=== PATIENT | male | born 1970 | race Caucasian/White ===

== ENCOUNTER 2025-01-08 21:31 | Emergency (ER) | payer BC, SELFPAY ==
--- OUTSIDE RECORDS SUMMARY | 2019-08-17 06:32 | XMS_ITS | Continuity of Care Document ---
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 Role Phone Liban Anderson MD Unavailable Unavailable Medications Medication Instructions Dosage Effective Dates (start - stop) Status Comments prednisone 20 mg tablet 3 PO for 2 days, then 2 PO for 2 days, then 1 PO for 2 days - Active Take Prednisone 20mg week one, then take medrol humphrey 4mg week 2 Medrol (Humphrey) 4 mg tablets in a dose pack take by Oral route Not Available - Active Take Prednisone 20mg week one, then take medrol humphrey 4mg week 2 cyclobenzaprine 10 mg tablet take 1 tablet by oral route every 8 hours - Active Procedures Procedure Date Office/outpatient visit,[facility] 2019 X-ray exam lower spine 2-3 views 2019 Advance Directives Directive Yes / No Effective Date File Name No Information Encounters Encounter Description Practice Location Reason(s) For Visit Diagnoses Date Provider Providers Copied on Encounter [facility], [facility] [place], [address], tel:[phone] No Information 0 Justin Louie. [address] [facility], [facility] [address], [place], [id number] , [place]. tel:[phone] Office/outpat ient visit,[facility], [address] [place], [address], [place] tel:[phone] [facility] [place] Radiculopathy , lumbar regionStrain of muscle, fascia and tendon of lower back, init 0 Justin Chavez [address] [facility], [address], [place], [place], [id number] , [place]. tel:[phone] Family History Family Member Type Diagnosis Age At Onset No Information Payers Payer name Insurance type Covered alliance party ID Authoriza tion(s) No Information Social History Type Description Quantity Date Captured Comments Alcohol Use Details Unknown Caffeine Use Details Unknown Tobacco Use Status No Information Smoking Status No Information Sex Male Chief Complaint And Reason For Visit From encounter dated '08/17/2019 11:32'. thoracic spine (chief complaint) Reason For Referral Reason For Referral No Information History Of Present Illness Encounter Date Complaint History Of Prese nt Illness thoracic spine Functional Status Date Functional Assessmen t No Information Instructions Date Instruction Additional Infor mation No Information Assessments Type Assessment Date No Information Patient Care Teams Name Effective Dates (start - stop) Status Members No Information
[2025-01-08 21:34] VITALS: BP 131/100; PULSE 90; RESP 20; TEMP 36.6; O2SAT 100; BMI 26.4
[2025-01-08] MEDS: ONDANSETRON 4MG/2ML VIAL 4 MG IV (22:01)
[2025-01-08] MEDS: KETOROLAC 15MG/ML VIAL 15 MG IV ×2 (22:01→23:59)
[2025-01-08 22:05] LABS: Alanine Aminotransferase 32 U/L (12-78); Albumin Level 4.8 g/dl (3.5-5.0); Albumin/Globulin Ratio 1.6 (1.1-1.8); Alkaline Phosphatase 59 U/L (38-126); Anion Gap 12.0 mEq/L (5-15); Aspartate Amino Transferase 35 U/L (17-59); Bilirubin,Total 1.3 mg/dl (0.2-1.3); Blood Urea Nitrogen 25 mg/dl (9-20); Calcium 10.0 mg/dl (8.4-10.2); Carbon Dioxide 25 mmol/L (22.0-30.0); Chloride 101 mmol/L (98-107); Creatinine Clearance Estimated 81 mL/min (50-200); Creatinine,Serum 1.30 mg/dl (0.66-1.25); Estimated Glomerular Filt Rate 57 ml/min (>60); GFR (African American) 69 ML/MIN (>60); Globulin 3.0 g/dL (1.3-3.2); Glucose 180 mg/dl (74-100); Potassium 4.0 mmoL/L (3.5-5.1); Sodium 134 mmol/L (136-145); Total Protein,Serum 7.8 g/dl (6.3-8.2)
[2025-01-08 22:11] LABS: Hematocrit 44.6 % (42.0-52.0); Hemoglobin 15.7 g/dL (14.1-18.0); Immature Granulocytes % 0.4 %; Mean Corpuscular HGB Conc 35.2 g/dL (31.8-35.4); Mean Corpuscular Hemoglobin 33.0 pg (27.0-31.2); Mean Corpuscular Volume 93.7 fl (80-94); Nucleated Red Blood Cells % 0 %; Platelet Count 239 K/mm3 (142-424); Red Blood Count 4.76 M/mm3 (4.60-6.20); Red Cell Distribution Width-SD 41.7 fL; White Blood Count 9.7 K/mm3 (4.8-10.8)
[2025-01-08] MEDS: 0.9 % SODIUM CHLORIDE 1000ML 1,000 ML 999 ML IV (22:33)
[2025-01-08 22:35] LABS: Microscopic, Urine URINE MICROSCOPIC (MICROSCOPIC)
--- NOTE | 2025-01-08 22:36 | CT_ITS ---
PROCEDURE INFORMATION: Exam: CT Abdomen And Pelvis With Contrast Exam date and time: 01/08/2025 11:07 PM Age: 54 years old Clinical indication: Abdominal pain; Flank; Left; Additional info: Left flank pain TECHNIQUE: Imaging protocol: Computed tomography of the abdomen and pelvis with contrast. Radiation optimization: All CT scans at this facility use at least one of these dose optimization techniques: automated exposure control; mA and/or kV adjustment per patient size (includes targeted exams where dose is matched to clinical indication); or iterative reconstruction. Contrast material: ISOVUE; Contrast volume: 75 ml; Contrast route: IV; COMPARISON: No relevant prior studies available. FINDINGS: Lungs: There is minimal bibasilar atelectasis. There is a calcified granuloma at the left lung base. Liver: Hepatic steatosis is noted. Gallbladder and biliary ducts: The gallbladder is contracted. There is no biliary ductal dilation. Pancreas: Normal. No ductal dilation. Spleen: Normal. No splenomegaly. Adrenal glands: Normal. No mass. Kidneys and ureters: There is a 5 x 7 mm proximal left ureteral calculus causing mild hydronephrosis. The right kidney and ureter are normal. Stomach and bowel: Debris distended stomach without evidence of gastric outlet obstruction. The finding may be secondary to recent ingested meal or delay in gastric emptying. The small bowel and colon demonstrate no acute findings. There are a few scattered left colon diverticula are present. Appendix: No evidence of appendicitis. Intraperitoneal space: Unremarkable. No free air. No significant fluid collection. Vasculature: Unremarkable. No abdominal aortic aneurysm. Lymph nodes: Unremarkable. No enlarged lymph nodes. Urinary bladder: Unremarkable as visualized. Reproductive: The prostate gland is enlarged. Bones/joints: There are mild degenerative changes of the spine. No acute fracture. Soft tissues: There is a very small fat containing left inguinal hernia. IMPRESSION: 1. 5 x 7 mm proximal left ureteral calculus causing very mild hydronephrosis. 2. Other nonacute findings as noted.
[2025-01-08 22:39] LABS: Bilirubin,Urine Negative (Negative); Color,Urine YELLOW (Yellow); Glucose,Urine (UA) Negative (Negative); Ketones,Urine TRACE (Negative); Leukocyte Esterase,Urine Negative (Negative); PH,Urine 5.5 (5.0-8.5); Protein,Urine Negative (Negative); Specific Gravity, Urine >= 1.030 (1.005-1.030); Urobilinogen,Urine 0.2 EU/dl (0.2)
--- NOTE | 2025-01-08 22:42 | HMH.EDGENADL ---
Discharge Plan Disposition Patient Disposition: Home, Self-Care Condition: Good Prescriptions Prescriptions: New ketorolac 10 mg tablet 10 mg PO Q8H 5 Days Qty: 15 0RF oxycodone 5 mg tablet 5 mg PO Q8H Qty: 12 0RF tamsulosin 0.4 mg capsule 0.4 mg PO DAILY Qty: 20 0RF Referrals Follow up/Referrals: Dong Miranda [Primary Care Provider, Medical] - See instructions Activity Restrictions/Add. Instructions Additional Instructions/Restrictions: You have a 5x7 mm stone in your left ureter. I want you to take Flomax to help encourage quicker passage of the stone. I also want you to take Toradol every 8 hours. If you have breakthrough pain you can take Oxycodone. If you develop persistent, intractable pain you may need evaluation by urology to remove the stone. Please return to the ER promptly if you develop urinary retention, fevers, or worsening intractable pain. Clinical Impressions Clinical Impression: Calculus of left ureter Print Language Print Language: Ukrainian Discharge ED Provider: Omari John Adult HPI General Chief complaint: PAIN Stated complaint: Left side pain, cold sweat, blurred vision Time Seen by Provider: 01/08/25 22:30 Mode of Arrival: Family Vehicle Source of Information: Patient Description of Symptoms (Recalled from ER Triage Doc. by RN): Pt c/o sudden onset of left flank pain with diaphoresis, nausea, and almost syncopal episode. States he can not get comfortable to pain waxes and wanes but worsens each time. Currently pain is 7/10 on [employer]. States he did drink 1 beer tonight at [employer]. Denies any hx of kidney stones. No significant PMH. Denies any urinary pain or gross hematuria. History of Present Illness HPI narrative: This is a 54-year-old male patient, with past medical history of diabetes, who is presenting to the emergency department today for evaluation of left flank pain. Patient states that he was at the [employer] earlier this evening when he began experiencing sudden onset colicky pain in the left flank. He states that this pain caused him to feel lightheaded, sweaty, and clammy. He states that he has had some burning with urination but has not had any overt hematuria or urinary frequency. Patient is never had a kidney stone before however he does have history of kidney stones in the family with his father. Additionally, he states that he has had history of diverticulitis but this pain does not feel similar to that and he is not experiencing any nausea, vomiting, or diarrhea. No chest pain or shortness of breath Related Data Previous Rx's ?Medication ?Instructions ?Recorded ketorolac 10 mg tablet 10 mg PO Q8H 5 days #15 tabs 01/09/25 oxycodone 5 mg tablet 5 mg PO Q8H #12 tabs 01/09/25 tamsulosin 0.4 mg capsule 0.4 mg PO DAILY #20 caps 01/09/25 Allergies Allergy/AdvReac Type Severity Reaction Status Date / Time Unable to Assess Allergy Verified 01/08/25 21:54 [facility] Disclaimer: The information contained in this section may have been updated after the patient was seen, as this information can be updated by other users. Social History Smoking Status: Never smoker alcohol intake: former current occupational status: employed Travel in the last 8 weeks?: None ROS Obtained: Yes Systems reviewed as appropriate & no additional complaints except as documented Physical Exam General General appearance: other (See MDM) Respiratory Respiratory exam: Present other (See MDM) Cardiovascular Cardiovascular exam: Present other (See MDM) Neurological Exam Neurological exam: Present other (See MDM) Medical Decision Making Medical Records Medical records reviewed: Yes I reviewed the patient's medical records. Screening: Per USPSTF and CDC recommendations, given the prevalence of disease in our region, it is our hospital?s policy to screen for HIV and viral Hepatitis for all patients aged 18 and over and those with ongoing risk factors. Niall Inquiry Pt receiving controlled substance: No Niall was queried for this patient: No Vital Signs: 01/08/25 21:34 Temperature 97.8 F Temperature Source Oral Pulse Rate [Right] 90 Respiratory Rate 20 Blood Pressure [Right Arm] 131/100 H Blood Pressure Mean [Right Arm] 110 Blood Pressure Source [Right Arm] Automatic Cuff 02 Sat by Pulse Oximetry 100 Oxygen Delivery Method Room Air Lab Data Lab Results 01/08/25 21:43: WBC 9.7, RBC 4.76, Hgb 15.7, Hct 44.6, MCV 93.7, MCH 33.0 H, MCHC 35.2, RDW 12.1, Plt Count 239, MPV 9.1, Neut % (Auto) 76.3, Lymph % (Auto) 16.4, [place] % (Auto) 5.3, Eos % (Auto) 1.2, Baso % (Auto) 0.4, Neut # (Auto) 7.4, Lymph # (Auto) 1.6, [place] # (Auto) 0.5, Eos # (Auto) 0.1, Baso # (Auto) 0.0, Sodium 134 L, Potassium 4.0, Chloride 101, Carbon Dioxide 25, Anion Gap 12.0, BUN 25 H, Creatinine 1.30 H, Estimated Creat Clear 81, Estimated GFR 57 L, Est GFR ( Amer) 69, Glucose 180 H, Calcium 10.0, Total Bilirubin 1.3, AST 35, ALT 32, Alkaline Phosphatase 59, Total Protein 7.8, Albumin 4.8, Globulin 3.0, Albumin/Globulin Ratio 1.6, Lipase 165 01/08/25 22:30: Urine Color Yellow, Urine Appearance Sl cloudy, Urine pH 5.5, Ur Specific [place] >= 1.030, Urine Protein Negative, Urine Glucose (UA) Negative, Urine Ketones Trace, Urine Blood 3+ A, Urine Nitrate Negative, Urine Bilirubin Negative, Urine Urobilinogen 0.2, Ur Leukocyte Esterase Negative, Urine RBC Tntc, Urine WBC 3-5, Ur Squamous Epith Cells 3-5, Urine Bacteria 2+, Urine Mucus 4+ 01/08/25 21:43 01/08/25 21:43 Orders (Tests/Meds): ED MEDICATIONS Discontinued Medications Generic Name Dose Route Start Last Admin Trade Name Wilfridq PRN Reason Stop Dose Admin Hydromorphone HCl 1 mg 01/08/25 23:18 01/08/25 23:22 Hydromorphone 2mg/Ml Syringe IV 01/08/25 23:19 1 mg ONCE ONE Administration Sodium Chloride 1,000 mls @ 999 mls/hr 01/08/25 22:27 01/08/25 23:46 Sod Chlor 0.9% 1000ml Bag IV 01/08/25 23:27 Infused .Q1H1M ONE Infusion Iopamidol 75 ml 01/08/25 23:11 01/08/25 23:11 Iopamidol-370 (76%);100ml Bottle IV 01/08/25 23:12 75 ml ONCE ONE Administration Ketorolac Tromethamine 15 mg 01/08/25 21:58 01/08/25 22:01 Ketorolac 15mg/Ml Vial IV 01/08/25 21:59 15 mg ONCE ONE Administration Ketorolac Tromethamine 15 mg 01/08/25 23:51 01/08/25 23:59 Ketorolac 15mg/Ml Vial IV 01/08/25 23:52 15 mg ONCE ONE Administration Ondansetron HCl 4 mg 01/08/25 21:58 01/08/25 22:01 Ondansetron 4mg/2ml Vial IV 01/08/25 21:59 4 mg ONCE ONE Administration Oxycodone HCl 5 mg 01/08/25 23:52 01/08/25 23:59 Oxycodone 5mg Immediate Release Tablet PO 01/08/25 23:53 5 mg ONCE ONE Administration Sodium Chloride 10 ml 01/08/25 23:11 01/08/25 23:11 Sodium Chloride 0.9% 10ml Syr (Rad Only) IV 01/08/25 23:12 10 ml ONCE ONE Administration Tamsulosin HCl 0.4 mg 01/08/25 23:29 01/08/25 23:41 Tamsulosin 0.4mg Capsule PO 01/08/25 23:30 0.4 mg HS ONE Administration ORDERS Category Date Time Status CT abdomen pelvis w con Stat Cat Scan 01/08/25 22:36 Completed Complete Blood Count Auto Diff Stat Lab 01/08/25 21:43 Completed Comprehensive Metabolic Panel Stat Lab 01/08/25 21:43 Completed Lipase Stat Lab 01/08/25 21:43 Completed UA [Urinalysis and Microscopic] Stat Lab 01/08/25 22:30 Completed Urine Culture Stat Micro 01/08/25 22:30 Received Medical Decision Narrative: In summary, this a 54-year-old male patient who is presenting to the emergency department today for evaluation of sudden onset colicky left-sided flank pain that began earlier this evening. Patient has a past medical history of diabetes which increases risk for morbidity. On initial evaluation of the patient they were resting comfortably in no acute distress and nontoxic in appearance. They are hemodynamically stable, saturating well room air, and are neurologically intact. On physical examination the patient has significant left CVA tenderness. He has no abdominal tenderness anteriorly. Heart and lungs are clear to auscultation bilaterally. During my examination the patient did develop an episode of colicky pain and appeared to be in acute distress. Differential diagnosis includes ureteral stone, pyelonephritis, cystitis, acute kidney injury, electrolyte derangement, among others. This could also be an atypical presentation of diverticulitis but I do feel this is less likely. Workup is initiated with hematologic labs as well as a urinalysis and a CT scan of the abdomen and pelvis IV contrast per We have treated the patient's pain with 15 mg of Toradol as well as 1 mg Dilaudid. Labs were personally interpreted by me and demonstrate no evidence of leukocytosis, no electrolyte derangement, and no evidence of urinary tract infection. The patient's creatinine here today is 1.3, we do not have any priors to compare to in our hospital system. However the patient does show me prior lab work from May on his phone where his creatinine was 1. He does not meet the threshold for an elevated creatinine greater than 1.5 times his baseline so he does not have an acute kidney injury at this time. Given that it is late at night I did treat the patient again for pain prophylactically with 5 mg of oxycodone and an additional 15 mg of Toradol. We will continue treating the patient at home with tamsulosin, Toradol, and oxycodone for breakthrough pain. The patient understands that he should return to the emergency department if he experiences urinary retention, fevers, or intractable pain that is refractory to the medications listed above. At this time all questions been answered and all parties are agreeable with the decision to discharge home Critical Care Critical Care Time Critical Care Time: No
[2025-01-08 22:52] LABS: Bacteria,Urine 2+ /lpf; Mucus,Urine 4+ /lpf; RBC,Urine TNTC #/hpf (0-3)
[2025-01-08 22:53] LABS: Lipase 165 U/L (23-300)
[2025-01-08] MEDS: SODIUM CHLORIDE 0.9% 10ML SYR (RAD ONLY) 10 ML IV (23:11)
[2025-01-08] MEDS: IOPAMIDOL-370 (76%);100ML BOTTLE 75 ML IV (23:11)
[2025-01-08] MEDS: HYDROMORPHONE 2MG/ML SYRINGE 1 MG IV (23:22)
[2025-01-08] MEDS: TAMSULOSIN 0.4MG CAPSULE 0.4 MG PO (23:41)
[2025-01-08] MEDS: OXYCODONE 5MG IMMEDIATE RELEASE TABLET 5 MG PO (23:59)
[2025-01-09 00:18] VITALS: BP 123/74; PULSE 88; RESP 16; TEMP 37; O2SAT 100
== END 2025-01-09 00:22 | disposition home or self-care (01) ==
PROVIDERS: Emergency Provider Student in an Organized Health Care Education/Training Program; PCP Family Medicine
DX: N13.0 Hydronephrosis with ureteropelvic junction obstruction (principal); R10.A2 Flank pain, left side; R30.0 Dysuria
CPT/HCPCS: 74177; 80053; 81001; 83690; 85025; 87086; 96361; 96374; 96375; 96376; 99285; J1171; J1885; J2405; J7030; Q9967